=== PATIENT | female | born 1980 | race Two or more races ===

== ENCOUNTER 2024-01-10 11:56 | Emergency (ER) | payer SELFPAY ==
[~2024-01-10] VITALS: Ht 154.9 cm; Wt 78.3 kg
[2024-01-10 14:19] VITALS: BP 115/68; PULSE 71; RESP 16; O2SAT 96
== END 2024-01-10 14:02 | disposition left against medical advice (07) ==
LOC: ER 11:56
DX: R51.9 Headache, unspecified (principal); Z53.21 Procedure and treatment not carried out due to patient leaving prior to being seen by health care provider